=== PATIENT | female | born 1980 | race Caucasian/White ===

== ENCOUNTER 2016-11-11 21:51 | Emergency (ER) | payer OTHER ==
--- NOTE | 2016-11-12 00:13 | ED NURSING NOTES ---
Clinical Report - Nurses [facility] [place] [address] [address] 11/11/2016 21:51 [id number] Triage time 23:00 Nov 11 2016. Acuity: LEVEL 3. Chief Complaint: RIGHT LOWER EXTREMITY PAIN, SWELLING and REDNESS. 23:10. Alert. TRISTIAN COMA SCORE: [place] Coma Scale: 15- eyes open spontaneously (4); best verbal response- oriented x 4 (5); best motor response- obeys commands (6). --23:10 Herb Mann R.N. 23:01 11/11/16. BP: 128/67. HR: 92. RR: 16. O2 saturation: 100% on room air. Temp: 99 F. Pain level now: 10. Additional comments: R) Foot pain. --23:10 Herb Mann R.N. Weight: 68 kg stated. Height/Length: 64 inches Per Patient. BMI: 25.8. --23:01 Herb Mann R.N. Medications None. --23:03 Herb Mann R.N. Medication/allergy information source: the patient. --23:10 Herb Mann R.N. Allergies Penicillins. Definite Moderate(rash) --23:03 Herb Mann R.N. History Arrived by private vehicle. Historian: patient. Accompanied by family. Primary physician (none). ( (R) Foot pain and swelling associated with redness.). No injury occurred. This occurred (about 2 days ago). Occurred at home. She has had swelling, redness and trouble walking. Treatment BAKER BENCH: None. PAST MEDICAL HX: Tetanus status: up-to-date. Immunizations: status is unknown. Last normal menstrual period- unknown. SOCIAL HX: Smoker- current status unknown (vapes nicotine 7-8 times per day). History of drug use: marijuana. (daily). No alcohol use. No infectious disease exposure. ABUSE ASSESSMENT: No report of abuse. FALL RISK ASSESSMENT: Fall risk assessment completed. No fall risk identified. NUTRITIONAL RISK ASSESSMENT: The nutritional risk assessment revealed no deficiencies. FUNCTIONAL ASSESSMENT: Functional assessment: no impairments noted. LEARNING NEEDS ASSESSMENT: The learning needs assessment revealed no barriers. SKIN INTEGRITY ASSESSMENT: Skin integrity risk assessment completed. No skin integrity risk identified. --23:10 Herb Mann R.N. PROBLEMS: Cellulitis. Bipolar Disorder. MRSA Infection. Constipation. Dental Caries. Immunizations. Night Terrors. Insomnia. PTSD. Anxiety attack. Agoraphobia. Hypertension. Abscess. Substance Abuse. --23:03 Herb Mann R.N. MRSA Infection. --23:12 Herb Carter R.N. ADDITIONAL SURGERIES: Tubal Ligation. --23:03 Herb Mann R.N. Interventions ID and allergy band on patient. To treatment room. --23:10 Herb Mann R.N. PHYSICAL ASSESSMENT 23:11. Ambulatory to room. GENERAL / NEURO / PSYCH: Oriented X 4. Alert. EXTREMITIES: Right foot: swelling and erythema. SKIN: Skin intact. Skin is warm and dry. --23:11 Herb Carter R.N. NURSING PROGRESS NOTES 23:11. Two patient identifiers checked. Call light placed in reach. Bed placed in lowest position. Brakes of bed on. Patient ready for evaluation- chart flagged. --23:11 Herb Carter R.N. 00:20. The patient is calm and resting quietly. GENERAL / NEURO / PSYCH: Alert. Oriented X 4. RESPIRATORY: No respiratory distress. EXTREMITIES: Neuro-vascular status intact to the extremities. SKIN: Skin is warm and dry. --00:24 Herb Carter R.N. DISPOSITION / DISCHARGE Departure time: 00:23. Condition at departure: stable. No learning barriers present. Reviewed medication(s) side effects, precautions, dosing and course information. Prescription(s) given to the patient. Patient verbalized understanding. Written instructions provided in [place]. The patient was discharged home and accompanied by coroner. She left the Emergency Department ambulatory and via private vehicle. Clinical Outcomes Manager driving. FALL RISK ASSESSMENT: Fall risk assessment completed. No fall risk identified. --00:23 Herb Carter R.N. 00:21 11/12/16. BP: 118/82. HR: 92. RR: 15. O2 saturation: 100%. Pain level now: 05/12. --00:23 Herb Carter R.N. Locked/Released at 11/12/2016 1:11 by Herb Carter R.N.
--- NOTE | 2016-11-12 00:13 | ED CLINICAL REPORT ---
Clinical Report - Physicians/Mid Levels [facility] [address], [place] [address] 11/11/2016 21:51 Patient: JOSÉ ANTONIO BECKETT Time Seen: 23:11. Arrived- By private vehicle. Historian- patient. HISTORY OF PRESENT ILLNESS Chief Complaint: SKIN RASH and TENDER AREA. This started several days ago and is still present and now worse. It was gradual in onset and has been constant. It is described as painful. It has been located on the right foot. Similar symptoms previously: None. REVIEW OF SYSTEMS No chills, fever, sweats, calf pain or chest pain. No cough, difficulty breathing, palpitations, abdominal pain or constipation. No diarrhea, nausea, vomiting or urinary problems. All systems otherwise negative, except as recorded above. SOCIAL HISTORY Smoker- current status unknown (vape pen). History of heavy drug use: cocaine. No alcohol use. FAMILY HISTORY Denies family medical history. PHYSICAL EXAM Appearance: Alert. Eyes: Pupils equal, round and reactive to light. ENT: Pharynx normal. Neck: Neck supple. No lymphadenopathy. CVS: Normal heart rate and rhythm. Heart sounds normal. Respiratory: Breath sounds normal. Abdomen: Nontender. Skin: Medium area of cellulitis with tenderness, erythema and warmth to right foot. Extremities: No calf tenderness. PROGRESS AND PROCEDURES Course of Care: Patient is stable. Patient/family counseled. Old medical records reviewed. Disposition: Discharged. Condition: stable. CLINICAL IMPRESSION Cellulitis of the right foot. INSTRUCTIONS Warnings: Further evaluation is necessary. GENERAL WARNINGS: Return or contact your physician immediately if your condition worsens or changes unexpectedly, if not improving as expected, or if other problems arise. Prescription Medications: Bactrim DS 800 mg / 160 mg: take 2 tablets orally every 12 hours for 10 days. No refill. Substitution is permissible. Understanding of the discharge instructions verbalized by patient. Follow-up with: [facility], , , [address], , [place], [id number] Follow up in two days. Call for an appointment. (Electronically signed by Willy Gongora MD 11/16/2016 16:19)
--- NOTE | 2016-11-12 00:13 | ED CLINICAL REPORT ---
Clinical Report - Physicians/Mid Levels [facility] [address], [place] [address] 11/11/2016 21:51 Patient: JOSÉ ANTONIO BCEKETT Time Seen: 23:11. Arrived- By private vehicle. Historian- patient. HISTORY OF PRESENT ILLNESS Chief Complaint: SKIN RASH and TENDER AREA. This started several days ago and is still present and now worse. It was gradual in onset and has been constant. It is described as painful. It has been located on the right foot. Similar symptoms previously: None. REVIEW OF SYSTEMS No chills, fever, sweats, calf pain or chest pain. No cough, difficulty breathing, palpitations, abdominal pain or constipation. No diarrhea, nausea, vomiting or urinary problems. All systems otherwise negative, except as recorded above. SOCIAL HISTORY Smoker- current status unknown (vape pen). History of heavy drug use: cocaine. No alcohol use. FAMILY HISTORY Denies family medical history. PHYSICAL EXAM Appearance: Alert. Eyes: Pupils equal, round and reactive to light. ENT: Pharynx normal. Neck: Neck supple. No lymphadenopathy. CVS: Normal heart rate and rhythm. Heart sounds normal. Respiratory: Breath sounds normal. Abdomen: Nontender. Skin: Medium area of cellulitis with tenderness, erythema and warmth to right foot. Extremities: No calf tenderness. PROGRESS AND PROCEDURES Course of Care: Patient is stable. Patient/family counseled. Old medical records reviewed. Disposition: Discharged. Condition: stable. CLINICAL IMPRESSION Cellulitis of the right foot. INSTRUCTIONS Warnings: Further evaluation is necessary. GENERAL WARNINGS: Return or contact your physician immediately if your condition worsens or changes unexpectedly, if not improving as expected, or if other problems arise. Prescription Medications: Bactrim DS 800 mg / 160 mg: take 2 tablets orally every 12 hours for 10 days. No refill. Substitution is permissible. Understanding of the discharge instructions verbalized by patient. Follow-up with: [facility], , , [address], , [place], [id number] Follow up in two days. Call for an appointment. (Electronically signed by Willy Gongora MD 11/16/2016 16:19)
--- NOTE | 2016-11-12 00:13 | ED NURSING NOTES ---
Clinical Report - Nurses [facility] [place] [address] [place] [address] 11/11/2016 21:51 [id number] Triage time 23:00 Nov 11 2016. Acuity: LEVEL 3. Chief Complaint: RIGHT LOWER EXTREMITY PAIN, SWELLING and REDNESS. 23:10. Alert. TRISTIAN COMA SCORE: [place] Coma Scale: 15- eyes open spontaneously (4); best verbal response- oriented x 4 (5); best motor response- obeys commands (6). --23:10 Herb Mann R.N. 23:01 11/11/16. BP: 128/67. HR: 92. RR: 16. O2 saturation: 100% on room air. Temp: 99 F. Pain level now: 10. Additional comments: R) Foot pain. --23:10 Herb Mann R.N. Weight: 68 kg stated. Height/Length: 64 inches Per Patient. BMI: 25.8. --23:01 Herb Mann R.N. Medications None. --23:03 Herb Mann R.N. Medication/allergy information source: the patient. --23:10 Herb Mann R.N. Allergies Penicillins. Definite Moderate(rash) --23:03 Herb Mann R.N. History Arrived by private vehicle. Historian: patient. Accompanied by family. Primary physician (none). ( (R) Foot pain and swelling associated with redness.). No injury occurred. This occurred (about 2 days ago). Occurred at home. She has had swelling, redness and trouble walking. Treatment ORTHODONTIST ASSISTANT: None. PAST MEDICAL HX: Tetanus status: up-to-date. Immunizations: status is unknown. Last normal menstrual period- unknown. SOCIAL HX: Smoker- current status unknown (vapes nicotine 7-8 times per day). History of drug use: marijuana. (daily). No alcohol use. No infectious disease exposure. ABUSE ASSESSMENT: No report of abuse. FALL RISK ASSESSMENT: Fall risk assessment completed. No fall risk identified. NUTRITIONAL RISK ASSESSMENT: The nutritional risk assessment revealed no deficiencies. FUNCTIONAL ASSESSMENT: Functional assessment: no impairments noted. LEARNING NEEDS ASSESSMENT: The learning needs assessment revealed no barriers. SKIN INTEGRITY ASSESSMENT: Skin integrity risk assessment completed. No skin integrity risk identified. --23:10 Herb Mann R.N. PROBLEMS: Cellulitis. Bipolar Disorder. MRSA Infection. Constipation. Dental Caries. Immunizations. Night Terrors. Insomnia. PTSD. Anxiety attack. Agoraphobia. Hypertension. Abscess. Substance Abuse. --23:03 Herb Mann R.N. MRSA Infection. --23:12 Herb Carter R.N. ADDITIONAL SURGERIES: Tubal Ligation. --23:03 Herb Mann R.N. Interventions ID and allergy band on patient. To treatment room. --23:10 Herb Mann R.N. PHYSICAL ASSESSMENT 23:11. Ambulatory to room. GENERAL / NEURO / PSYCH: Oriented X 4. Alert. EXTREMITIES: Right foot: swelling and erythema. SKIN: Skin intact. Skin is warm and dry. --23:11 Herb Carter R.N. NURSING PROGRESS NOTES 23:11. Two patient identifiers checked. Call light placed in reach. Bed placed in lowest position. Brakes of bed on. Patient ready for evaluation- chart flagged. --23:11 Herb Carter R.N. 00:20. The patient is calm and resting quietly. GENERAL / NEURO / PSYCH: Alert. Oriented X 4. RESPIRATORY: No respiratory distress. EXTREMITIES: Neuro-vascular status intact to the extremities. SKIN: Skin is warm and dry. --00:24 Herb Carter R.N. DISPOSITION / DISCHARGE Departure time: 00:23. Condition at departure: stable. No learning barriers present. Reviewed medication(s) side effects, precautions, dosing and course information. Prescription(s) given to the patient. Patient verbalized understanding. Written instructions provided in [place]. The patient was discharged home and accompanied by power shovel mechanic. She left the Emergency Department ambulatory and via private vehicle. Lan Specialist driving. FALL RISK ASSESSMENT: Fall risk assessment completed. No fall risk identified. --00:23 Herb Carter R.N. 00:21 11/12/16. BP: 118/82. HR: 92. RR: 15. O2 saturation: 100%. Pain level now: 05/12. --00:23 Herb Carter R.N. Locked/Released at 11/12/2016 1:11 by Herb Carter R.N.
--- NOTE | 2016-11-16 16:19 | ED DISCHARGE INSTRUCTIONS ---
Patient: JOSÉ ANTONIO BECKETT General Instructions [facility] VisitID: [id number] [address] [place] [address] 36y, F Registration Date/Time: 11/11/2016 Cellulitis of the right foot. INSTRUCTIONS Warnings: Further evaluation is necessary. GENERAL WARNINGS: Return or contact your physician immediately if your condition worsens or changes unexpectedly, if not improving as expected, or if other problems arise. Prescription Medications: Bactrim DS 800 mg / 160 mg: take 2 tablets orally every 12 hours for 10 days. No refill. Substitution is permissible. Understanding of the discharge instructions verbalized by patient. Follow-up with: [facility], , , [address], , [place], [id number] Follow up in two days. Call for an appointment. ADDITIONAL INFORMATION Cellulitis You have an infection of the skin known as cellulitis. This usually starts with a scrape, cut, insect bite, blister or other opening in the skin which becomes infected. This is a serious condition. It must be watched closely to be sure the infection is not spreading. With antibiotic treatment, the size of the red area will gradually shrink in size until the skin returns to normal. This will take 7-10 days. The red area should never increase in size once the antibiotic medicine has been started. Occasionally, an infection will be resistant to one antibiotic and another one will have to be used. Home Care: 1) Limit the use of the affected part, since excess movement can cause the infection to spread. 2) If the infection is on your leg, walk as little as possible during the first few days of the treatment. Keep your leg elevated while sitting. This will reduce swelling. 3) Take all of the antibiotic medicine exactly as directed until it is gone. Be careful not to miss any doses, especially during the first seven days. Follow Up with your doctor or this facility as directed. Check the infected area daily for the warning signs listed below. Get Prompt Medical Attention if any of the following occur: -- Spreading area of redness -- Increasing swelling or pain -- Appearance of pus or drainage -- Fever over 100.4 F (38.0 C) oral, or over 101.4 F (38.6 C) rectal, after two days on antibiotics Sulfamethoxazole, Trimethoprim Oral tablet What is this medicine? SULFAMETHOXAZOLE; TRIMETHOPRIM or SMX-TMP (suhl fuh meth OK noemy zohl; trye METH oh prim) is a combination of a sulfonamide antibiotic and a second antibiotic, trimethoprim. It is used to treat or prevent certain kinds of bacterial infections. It will not work for colds, flu, or other viral infections. How should I use this medicine? Take this medicine by mouth with a full glass of water. Follow the directions on the prescription label. Take your medicine at regular intervals. Do not take it more often than directed. Do not skip doses or stop your medicine early. Talk to your livestock farmers regarding the use of this medicine in children. Special care may be needed. This medicine has been used in children as young as 2 months of age. What side effects may I notice from receiving this medicine? Side effects that you should report to your doctor or health home child care provider as soon as possible: allergic reactions like skin rash or hives, swelling of the face, lips, or tongue breathing problems fever or chills, sore throat irregular heartbeat, chest pain joint or muscle pain pain or difficulty passing urine red pinpoint spots on skin redness, blistering, peeling or loosening of the skin, including inside the mouth unusual bleeding or bruising unusually weak or tired yellowing of the eyes or skin Side effects that usually do not require medical attention (report to your doctor or health home child care provider if they continue or are bothersome): diarrhea dizziness headache loss of appetite nausea, vomiting nervousness What may interact with this medicine? Do not take this medicine with any of the following medications: aminobenzoate potassium dofetilide metronidazole This medicine may also interact with the following medications: DORA inhibitors like benazepril, enalapril, lisinopril, and ramipril cyclosporine digoxin diuretics indomethacin medicines for diabetes methenamine methotrexate phenytoin potassium supplements pyrimethamine sulfinpyrazone tricyclic antidepressants warfarin What if I miss a dose? If you miss a dose, take it as soon as you can. If it is almost time for your next dose, take only that dose. Do not take double or extra doses. Where should I keep my medicine? Keep out of the reach of children. Store at room temperature between 20 to 25 degrees C (68 to 77 degrees F). Protect from light. Throw away any unused medicine after the expiration date. What should I tell my health care provider before I take this medicine? They need to know if you have any of these conditions: anemia asthma being treated with anticonvulsants if you frequently drink alcohol containing drinks kidney disease liver disease low level of folic acid or [id number] dehydrogenase poor nutrition or malabsorption porphyria severe allergies thyroid disorder an unusual or allergic reaction to sulfamethoxazole, trimethoprim, sulfa drugs, other medicines, foods, dyes, or preservatives or trying to get breast-feeding What should I watch for while using this medicine? Tell your doctor or health home child care provider if your symptoms do not improve. Drink several glasses of water a day to reduce the risk of kidney problems. Do not treat diarrhea with over the counter products. Contact your doctor if you have diarrhea that lasts more than 2 days or if it is severe and watery. This medicine can make you more sensitive to the sun. Keep out of the sun. If you cannot avoid being in the sun, wear protective clothing and use a sunscreen. Do not use sun lamps or tanning beds/booths. You have been given the following additional information: Cellulitis Sulfamethoxazole, Trimethoprim Oral tablet (Electronically signed by Willy Gongora MD 11/16/2016 16:19)
--- NOTE | 2016-11-16 16:19 | ED DISCHARGE INSTRUCTIONS ---
Patient: JOSÉ ANTONIO BECKETT General Instructions [facility] VisitID: [id number] [address] [place] [address] 36y, F Registration Date/Time: 11/11/2016 Cellulitis of the right foot. INSTRUCTIONS Warnings: Further evaluation is necessary. GENERAL WARNINGS: Return or contact your physician immediately if your condition worsens or changes unexpectedly, if not improving as expected, or if other problems arise. Prescription Medications: Bactrim DS 800 mg / 160 mg: take 2 tablets orally every 12 hours for 10 days. No refill. Substitution is permissible. Understanding of the discharge instructions verbalized by patient. Follow-up with: [facility], , , [address], , [place], [address] Follow up in two days. Call for an appointment. ADDITIONAL INFORMATION Cellulitis You have an infection of the skin known as cellulitis. This usually starts with a scrape, cut, insect bite, blister or other opening in the skin which becomes infected. This is a serious condition. It must be watched closely to be sure the infection is not spreading. With antibiotic treatment, the size of the red area will gradually shrink in size until the skin returns to normal. This will take 7-10 days. The red area should never increase in size once the antibiotic medicine has been started. Occasionally, an infection will be resistant to one antibiotic and another one will have to be used. Home Care: 1) Limit the use of the affected part, since excess movement can cause the infection to spread. 2) If the infection is on your leg, walk as little as possible during the first few days of the treatment. Keep your leg elevated while sitting. This will reduce swelling. 3) Take all of the antibiotic medicine exactly as directed until it is gone. Be careful not to miss any doses, especially during the first seven days. Follow Up with your doctor or this facility as directed. Check the infected area daily for the warning signs listed below. Get Prompt Medical Attention if any of the following occur: -- Spreading area of redness -- Increasing swelling or pain -- Appearance of pus or drainage -- Fever over 100.4 F (38.0 C) oral, or over 101.4 F (38.6 C) rectal, after two days on antibiotics Sulfamethoxazole, Trimethoprim Oral tablet What is this medicine? SULFAMETHOXAZOLE; TRIMETHOPRIM or SMX-TMP (suhl fuh meth OK noemy zohl; trye METH oh prim) is a combination of a sulfonamide antibiotic and a second antibiotic, trimethoprim. It is used to treat or prevent certain kinds of bacterial infections. It will not work for colds, flu, or other viral infections. How should I use this medicine? Take this medicine by mouth with a full glass of water. Follow the directions on the prescription label. Take your medicine at regular intervals. Do not take it more often than directed. Do not skip doses or stop your medicine early. Talk to your extra gang supervisor regarding the use of this medicine in children. Special care may be needed. This medicine has been used in children as young as 2 months of age. What side effects may I notice from receiving this medicine? Side effects that you should report to your doctor or health health care attorney as soon as possible: allergic reactions like skin rash or hives, swelling of the face, lips, or tongue breathing problems fever or chills, sore throat irregular heartbeat, chest pain joint or muscle pain pain or difficulty passing urine red pinpoint spots on skin redness, blistering, peeling or loosening of the skin, including inside the mouth unusual bleeding or bruising unusually weak or tired yellowing of the eyes or skin Side effects that usually do not require medical attention (report to your doctor or health health care attorney if they continue or are bothersome): diarrhea dizziness headache loss of appetite nausea, vomiting nervousness What may interact with this medicine? Do not take this medicine with any of the following medications: aminobenzoate potassium dofetilide metronidazole This medicine may also interact with the following medications: DORA inhibitors like benazepril, enalapril, lisinopril, and ramipril cyclosporine digoxin diuretics indomethacin medicines for diabetes methenamine methotrexate phenytoin potassium supplements pyrimethamine sulfinpyrazone tricyclic antidepressants warfarin What if I miss a dose? If you miss a dose, take it as soon as you can. If it is almost time for your next dose, take only that dose. Do not take double or extra doses. Where should I keep my medicine? Keep out of the reach of children. Store at room temperature between 20 to 25 degrees C (68 to 77 degrees F). Protect from light. Throw away any unused medicine after the expiration date. What should I tell my health care provider before I take this medicine? They need to know if you have any of these conditions: anemia asthma being treated with anticonvulsants if you frequently drink alcohol containing drinks kidney disease liver disease low level of folic acid or [id number] dehydrogenase poor nutrition or malabsorption porphyria severe allergies thyroid disorder an unusual or allergic reaction to sulfamethoxazole, trimethoprim, sulfa drugs, other medicines, foods, dyes, or preservatives or trying to get breast-feeding What should I watch for while using this medicine? Tell your doctor or health health care attorney if your symptoms do not improve. Drink several glasses of water a day to reduce the risk of kidney problems. Do not treat diarrhea with over the counter products. Contact your doctor if you have diarrhea that lasts more than 2 days or if it is severe and watery. This medicine can make you more sensitive to the sun. Keep out of the sun. If you cannot avoid being in the sun, wear protective clothing and use a sunscreen. Do not use sun lamps or tanning beds/booths. You have been given the following additional information: Cellulitis Sulfamethoxazole, Trimethoprim Oral tablet (Electronically signed by Willy Gongora MD 11/16/2016 16:19)
--- NOTE | 2016-11-16 16:19 | ED MED RECONCILIATION SUMMARY ---
Patient: JOSÉ ANTONIO BECKETT Medication Reconciliation Report [facility] VisitID: [id number] [address] [place] [address] 36y, F Registration Date/Time: 11/11/2016 Weight: 68.0 kg Height/Length: 64 in. BMI: 25.8 ALLERGIES: Penicillins The patient's Home Medications are listed below: NONE. The source(s) of the original Home Medication information: patient The following Medications were given to the patient in the Emergency Department: None. The following Medications were prescribed to the patient: Bactrim DS 800 mg / 160 mg: take 2 tablets orally every 12 hours for 10 days. No refill. Substitution is permissible. -- Willy Gongora MD
--- NOTE | 2016-11-16 16:19 | ED MAR SUMMARY ---
..... Medication Administration Record [facility] [address] [place] [id number] Patient: JOSÉ ANTONIO BECKETT Visit ID: [id number] 36y, F Weight: 68.0 kg Height/Length: 64 in BMI: 25.8 ALLERGIES: Penicillins
--- NOTE | 2016-11-16 16:19 | ED MED RECONCILIATION SUMMARY ---
Patient: JOSÉ ANTONIO BECKETT Medication Reconciliation Report [facility] VisitID: [id number] [address] [place] [address] 36y, F Registration Date/Time: 11/11/2016 Weight: 68.0 kg Height/Length: 64 in. BMI: 25.8 ALLERGIES: Penicillins The patient's Home Medications are listed below: NONE. The source(s) of the original Home Medication information: patient The following Medications were given to the patient in the Emergency Department: None. The following Medications were prescribed to the patient: Bactrim DS 800 mg / 160 mg: take 2 tablets orally every 12 hours for 10 days. No refill. Substitution is permissible. -- Willy Gongora MD
--- NOTE | 2016-11-16 16:19 | ED MAR SUMMARY ---
..... Medication Administration Record [facility] [address], [place] [id number] Patient: JOSÉ ANTONIO BECKETT Visit ID: [id number] 36y, F Weight: 68.0 kg Height/Length: 64 in BMI: 25.8 ALLERGIES: Penicillins
== END 2016-11-12 00:23 | disposition home or self-care (01) ==
LOC: ED SRH 21:51
DX: L03.115 Cellulitis of right lower limb (principal); I10 Essential (primary) hypertension; F17.200 Nicotine dependence, unspecified, uncomplicated